=== PATIENT | male | born 1965 | race Caucasian/White ===

== ENCOUNTER 2017-01-16 16:39 | Emergency (ER) | payer BC ==
[2017-01-16 17:04] VITALS: BP 140/86
[2017-01-16] MEDS ORDERED: Bacitracin Oint 1 GM U/D Packet TOP ONE (17:06)
--- NOTE | 2017-01-16 17:20 | EDM.PDOC ---
ED HPI GENERAL MEDICAL PROBLEM - General Chief Complaint: Laceration Stated Complaint: LEFT MIDDLE FINGER CUT Time Seen by Provider: 01/16/17 17:01 Source of Information: Reports: Patient History Limitations: Reports: No Limitations - History of Present Illness INITIAL COMMENTS - FREE TEXT/NARRATIVE: This patient was out at his cabin and was attempting to open or close a drawer at the store was hanging up and so he showed that and when he did his finger somehow got hung up in the drawer may be in the drawer slide or something like that. He sustained a laceration which seemed to bleed a lot. left middle fingwer Pain Score (Numeric/FACES): 2 - Related Data Allergies Allergy/AdvReac Type Severity Reaction Status Date / Time No Known Allergies Allergy Verified 01/16/17 17:00 Home Meds: Home Meds Cetirizine HCl [Zyrtec] 10 mg PO DAILY 01/16/17 [History] Past Medical History - Past Surgical History Musculoskeletal Surgical History: Reports: Other (See Below) Other Musculoskeletal Surgeries/Procedures:: achilles surgery, random broken bones Social & Family History - Tobacco Use Smoking Status *Q: Never Smoker - Recreational Drug Use Recreational Drug Use: No ED ROS GENERAL - Review of Systems Review Of Systems: ROS reveals no pertinent complaints other than HPI. ED EXAM, SKIN/RASH Exam: See Below Exam Limited By: No Limitations General Appearance: Alert, WD/WN Extremities: Other (There is a laceration approximately 1 cm long its a skin flap to the palmar surface of the left middle finger over the PIP joint. It's a clean wound there is good hemostasis.) Course - Vital Signs Last Recorded V/S: Last Vital Signs Temp 36 C 01/16/17 17:02 Pulse 61 01/16/17 17:02 Resp 16 01/16/17 17:02 BP 140/86 01/16/17 17:02 Pulse Ox 97 01/16/17 17:02 - Orders/Labs/Meds Meds: Medications Discontinued Medications Generic Name Dose Route Start Last Admin Trade Name Freq PRN Reason Stop Dose Admin Bacitracin 1 dose 01/16/17 17:06 01/16/17 17:14 Bacitracin Oint 1 Gm TOP 01/16/17 17:07 1 dose ONETIME ONE Administration - Re-Assessments/Exams Free Text/Narrative Re-Assessment/Exam: 01/16/17 17:22 The wound was cleaned with Hibiclens and lavaged copiously and running water. Bacitracin ointment and a dressing were then applied. This did not need any kind of surgical repair. Departure - Departure Time of Disposition: 17:19 Disposition: Home, Self-Care 01 Condition: fair Clinical Impression: Laceration of left middle finger - Discharge Information Referrals: PCP,None [Primary Care Provider] - Forms: ED Department Discharge Additional Instructions: Wash with soap and water every day. Apply antibiotic ointment and keep covered with a dressing. Watch for any signs of infection. It should heal quickly.
== END 2017-01-16 17:25 | disposition home or self-care (01) ==
LOC: JP.ED 16:39
DX: S61.213A Laceration without foreign body of left middle finger without damage to nail, initial encounter (principal); Z79.899 Other long term (current) drug therapy; Z98.890 Other specified postprocedural states; W22.8XXA Striking against or struck by other objects, initial encounter
CPT/HCPCS: 99283